=== PATIENT | female | born 1940 | race Caucasian/White ===

== ENCOUNTER → 2016-11-09 | Day surgery (SDC) | payer MEDICARE, OTHER ==
[~2016-11-09] VITALS: Ht 157.4 cm; Wt 77.1 kg
[~2016-11-09] MED LIST: ARMOUR THYROID60 MG PO; AVAPRO150 MG PO; BENZONATATE100 M1 PO; CARBIDOPA AND L1 OD1 PO; CEPHALEXIN500 M1 PO; COZAAR100 MG PO; CRESTOR10 MG PO; CRESTOR20 MG PO; DAYPRO600 M1 PO; Lomotil,Lonox 01 TAB PO; METOPROLOL SUCC50 M2 PO; NUVIGIL50 MG PO; VICODIN 5/500 505 MG PO; VITAMIN D5000 I2 PO
--- NOTE | ~2016-11-09 | O ---
[place], [place] OPERATIVE NOTE NAME: [id number] UNIT #: [id number] ROOM: DOCTOR: MAURICE MCCRAY MD BIRTHDATE: [birth year] DOS: 11/09/2016 PREOPERATIVE DIAGNOSIS: For removal of left subclavian port. POSTOPERATIVE DIAGNOSIS: For removal of left subclavian port. ANESTHESIA: Local 1% Xylocaine with bicarb. DESCRIPTION OF PROCEDURE: The patient is placed in the cart and left subclavicular area prepped and draped. 1% Xylocaine with bicarb infiltrated around and underneath it. The previous incision opened up and deepened to the port, which is completely removed. After we removed the catheter, I put an encircling suture around the entry site of the catheter. Closure done in 2 layers, deeper with 3-0 PDS and skin with 4-0 PDS subcuticular suture. After application of Steri-Strips, dressing applied. The patient tolerated the procedure well and sent to room. Maurice Mccray MD CM:OPRECORD:OPERATIVE NOTE [id number] MAURICE MCCRAY MD 11/12/16 1408 interface
[2016-11-09 08:00] VITALS: BP 163/75
[2016-11-09 09:16] VITALS: BP 159/74
[2016-11-09 09:31] VITALS: BP 165/75
[2016-11-09 09:52] VITALS: BP 148/56
== END | disposition home or self-care (01) ==
LOC: SDC 11-06 14:00
DX: Z45.2 Encounter for adjustment and management of vascular access device (principal); Z85.3 Personal history of malignant neoplasm of breast; Z85.51 Personal history of malignant neoplasm of bladder; E07.9 Disorder of thyroid, unspecified; Z85.43 Personal history of malignant neoplasm of ovary; Z85.828 Personal history of other malignant neoplasm of skin; Z85.038 Personal history of other malignant neoplasm of large intestine; I10 Essential (primary) hypertension; G20 Parkinson's disease; Z82.49 Family history of ischemic heart disease and other diseases of the circulatory system; Z87.891 Personal history of nicotine dependence